=== PATIENT | female | born 1960 | race Caucasian/White ===

== ENCOUNTER → 2025-01-18 | Day surgery (SDC) | payer OTHER ==
[~2025-01-18] MED LIST: CALCIUM ACETAT667 MG PO; CREATINE 50005000 MG PO; FIBER PO; FLUOXETINE HCL20 M1 PO; LIDOCAINE HCL 2% LOCAL INJ 5 ML SDV VIAL INJ ONE; NUTRAFOL PO; OMEGA 3 1,0001 EACH PO; PROPOFOL IV EMULSION 10 MG/ML 20 ML VIAL ONE
[2025-01-18] MEDS: LACTATED RINGER'S 1,000 ML ONE (07:14)
[2025-01-18 09:46] VITALS: TEMP 97.5
[2025-01-18 10:10] VITALS: BP 113/71; PULSE 61; RESP 18; O2SAT 99
== END | disposition home or self-care (01) ==
LOC: OR 06:52
PROVIDERS: ATTEND Internal Medicine Gastroenterology
DX: Z12.11 Encounter for screening for malignant neoplasm of colon (principal); D12.0 Benign neoplasm of cecum; K57.30 Diverticulosis of large intestine without perforation or abscess without bleeding; K64.8 Other hemorrhoids; K63.89 Other specified diseases of intestine; I10 Essential (primary) hypertension
CPT/HCPCS: 45385; J2003; J2704; J7121; 45378